=== PATIENT | female | born 1995 | race Caucasian/White ===

== ENCOUNTER 2018-01-08 09:13 | Emergency (ER) | payer BC, OTHER ==
[~2018-01-08 09:13] MED LIST: Iopamidol 370 76% 100 ML VIAL ONE
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
[2018-01-08] MEDS ORDERED: Ketorolac Tromethamine 60 MG/2 ML VIAL ONE (10:23)
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
== END 2018-01-08 11:02 | disposition home or self-care (01) ==
LOC: SCSER 09:13
DX: S20.212A Contusion of left front wall of thorax, initial encounter (principal); S20.211A Contusion of right front wall of thorax, initial encounter; S80.01XA Contusion of right knee, initial encounter; S70.02XA Contusion of left hip, initial encounter; S70.01XA Contusion of right hip, initial encounter; S50.312A Abrasion of left elbow, initial encounter; S50.311A Abrasion of right elbow, initial encounter; F32.9 Major depressive disorder, single episode, unspecified; Z79.899 Other long term (current) drug therapy; V43.52XA Car driver injured in collision with other type car in traffic accident, initial encounter; W22.11XA Striking against or struck by driver side automobile airbag, initial encounter
CPT/HCPCS: 71260; 74177; 96374; J1885

== ENCOUNTER 2022-10-28 16:21 | Outpatient (CLI) | payer BC ==
[2022-10-28 18:28] LABS: BHCG - Serum Negative (NEGATIVE); Pregs Control Background? CLEAR/WHITE (CLR/WHITE); Pregs Control Bar Appear? YES (CONTROL BAR)
== END 2022-10-28 16:22 | disposition home or self-care (01) ==
LOC: LABBT 16:21
PROVIDERS: ATTEND Otolaryngology Plastic Surgery within the Head & Neck
DX: Z01.812 Encounter for preprocedural laboratory examination (principal); H93.19 Tinnitus, unspecified ear; H91.90 Unspecified hearing loss, unspecified ear; J34.2 Deviated nasal septum; J34.3 Hypertrophy of nasal turbinates; J30.9 Allergic rhinitis, unspecified
CPT/HCPCS: 84703; 85014

== ENCOUNTER 2022-10-30 08:13 | Day surgery (SDC) | payer BC ==
[2022-10-29 13:00] VITALS: BMI 40.7
[2022-10-30] MEDS ORDERED: Oxymetazoline HCl 0.05% (30 ML BOT) ONE ×2 (08:50→09:35)
[2022-10-30] MEDS ORDERED: Midazolam HCl 2 mg/2 ml Vial ONE (09:24)
[2022-10-30] MEDS ORDERED: EPINEPHrine 1 MG/ML AMP ONE (09:35)
[2022-10-30] MEDS ORDERED: Bacitracin Zinc Ointment 30 gm TUBE ONE (09:35)
[2022-10-30] MEDS ORDERED: Lidocaine 1% (PF) 30 ML VIAL ONE (09:35)
[2022-10-30] MEDS ORDERED: fentaNYL PF 100 MCG/2 ML SYRINGE ONE (09:37)
[2022-10-30] MEDS ORDERED: Ondansetron PF 4 MG/2 ML Vial ONE (09:46)
[2022-10-30] MEDS ORDERED: ePHEDrine 50 MG/ML VIAL ONE (09:46)
[2022-10-30] MEDS ORDERED: Succinylcholine Chloride 100 MG/5 ML SYRINGE FS ONE (09:46)
[2022-10-30] MEDS ORDERED: Rocuronium Bromide 10 MG/ML (10ML VIAL) ONE (09:46)
[2022-10-30] MEDS ORDERED: PROPOFOL 200 MG/20 ML VIAL ONE (09:46)
[2022-10-30] MEDS ORDERED: FENTANYL 50 MCG/ML 1 ML VIAL ONE ×2 (10:32→10:47)
[2022-10-30] MEDS ORDERED: Promethazine HCl 25 MG/ML VIAL ONE (10:47)
[2022-10-30] MEDS ORDERED: Hydrocodone-Acetamin 15 ML UDCUP ONE (12:13)
== END 2022-10-30 12:52 | disposition home or self-care (01) ==
LOC: SDC 08:13
PROVIDERS: ATTEND Otolaryngology Plastic Surgery within the Head & Neck
DX: J34.2 Deviated nasal septum (principal); J34.3 Hypertrophy of nasal turbinates; J34.89 Other specified disorders of nose and nasal sinuses; H93.19 Tinnitus, unspecified ear; J30.9 Allergic rhinitis, unspecified; Z79.899 Other long term (current) drug therapy
CPT/HCPCS: J0171; J2001; J2250; J2550; J3010

== ENCOUNTER 2022-12-20 09:33 | Outpatient (CLI) | payer BC ==
[2022-12-20] MEDS ORDERED: Magnevist 469MG/ML 20 ML VIAL ONE (10:52)
== END 2022-12-20 09:34 | disposition home or self-care (01) ==
LOC: MRI 09:33
PROVIDERS: ATTEND Otolaryngology Plastic Surgery within the Head & Neck
DX: H93.A1 Pulsatile tinnitus, right ear (principal)
CPT/HCPCS: 70553